=== PATIENT | female | born 1985 | race Hispanic/Latino ===

== ENCOUNTER 2019-02-18 19:11 | Emergency (ER) | payer OTHER ==
[2019-02-18 19:27] VITALS: BP 131/84
--- NOTE | 2019-02-18 19:28 | Emergency Department Report ---
Blank Doc - Documentation Documentation: 33-year-old female that presents with flank pain. This initial assessment/diagnostic orders/clinical plan/treatment(s) is/are subject to change based on patient's health status, clinical progression and re- assessment by fellow clinical providers in the ED. Further treatment and workup at subsequent clinical providers discretion. Patient/guardians urged not to elope from the ED as their condition may be serious if not clinically assessed and managed. Initial orders include: 1- Patient sent to [facility] for further evaluation and treatment 2- UA
[2019-02-18] MEDS ORDERED: SODIUM CHLORIDE 0.9% 1000 ML 1,000 ML IV ONE (19:47)
[2019-02-18] MEDS ORDERED: ONDANSETRON 4 MG/2 ML INJ IV ONE (19:47)
[2019-02-18] MEDS ORDERED: MORPHINE 4 MG/1 ML INJ IV ONE (19:47)
[2019-02-18 19:50] LABS: Bilirubin,Urine NEG (Negative); Blood,Urine NEG (Negative); Color,Urine Yellow (Yellow); HCG Qualitative,Urine Negative (Negative); Mucus,Urine FEW /HPF; Protein,Urine <15 mg/dL mg/dL (Negative); Urobilinogen,Urine < 2.0 mg/dL (<2.0)
--- NOTE | 2019-02-18 19:55 | Emergency Department Report ---
ED General Adult HPI - General Chief complaint: Abdominal Pain Stated complaint: KIDNEY STONE PAIN Time Seen by Provider: 02/18/19 19:27 Source: patient Mode of arrival: Ambulatory Limitations: No Limitations - History of Present Illness Initial comments: Patient is a 33-year-old female presents emergency room with complaints of right flank pain that began yesterday. Patient states that it wraps around to her right lower abdomen. She has associated nausea and pressure when she urinates. She denies any fever, vomiting, diarrhea, vaginal discharge. She states she has a past medical history of nephrolithiasis and the last one was 3-4 years ago. She denies ever having to have any surgical procedures for her nephrolithiasis. She has a past medical history of ADHD, PTSD, asthma, TBI. She has a past surgical history hysterectomy. She has allergy to Keppra. - Related Data Previous Rx's Medication Instructions Recorded Last Taken Type Cyclobenzaprine [Flexeril] 10 mg PO QHS PRN #12 tablet 02/18/19 Unknown Rx Naproxen [EC-Naproxen] 500 mg PO BID PRN #14 tablet. 02/18/19 Unknown Rx Allergies Allergy/AdvReac Type Severity Reaction Status Date / Time levetiracetam [From Keppra] Allergy Anaphylaxis Verified 02/18/19 19:26 ED Review of Systems ROS: Stated complaint: KIDNEY STONE PAIN Other details as noted in HPI Comment: All other systems reviewed and negative ED Past Medical Hx - Past Medical History Previous Medical History?: Yes Hx Kidney Stones: Yes Hx Psychiatric Treatment: Yes (PTSD, ADHD) Hx Asthma: Yes Additional medical history: Right hip Bursitis, TBI - Surgical History Past Surgical History?: Yes Hx Appendectomy: Yes Additional Surgical History: Hysterectomy - Social History Smoking Status: Never Smoker Substance Use Type: Alcohol - Medications Home Medications: Home Medications Medication Instructions Recorded Confirmed Last Taken Type Cyclobenzaprine [Flexeril] 10 mg PO QHS PRN #12 tablet 02/18/19 Unknown Rx Naproxen [EC-Naproxen] 500 mg PO BID PRN #14 tablet. 02/18/19 Unknown Rx ED Physical Exam - General Limitations: No Limitations General appearance: alert, in no apparent distress - Head Head exam: Present: atraumatic, normocephalic - Eye Eye exam: Present: normal appearance - ENT ENT exam: Present: mucous membranes moist - Respiratory Respiratory exam: Present: normal lung sounds bilaterally. Absent: respiratory distress, wheezes, rales, rhonchi, stridor, chest wall tenderness, accessory muscle use, decreased breath sounds, prolonged expiratory - Cardiovascular Cardiovascular Exam: Present: regular rate, normal rhythm, normal heart sounds. Absent: systolic murmur, diastolic murmur, rubs, gallop - GI/Abdominal GI/Abdominal exam: Present: soft, normal bowel sounds. Absent: distended, guarding, rebound, rigid - Back Exam Back exam: Present: CVA tenderness (R) - Neurological Exam Neurological exam: Present: alert, oriented X3 - Psychiatric Psychiatric exam: Present: normal affect, normal mood - Skin Skin exam: Present: warm, dry, intact ED Course Vital Signs 02/18/19 02/18/19 02/18/19 19:20 19:28 22:20 Temperature 97.7 F 97.7 F Pulse Rate 88 91 H Respiratory 18 18 17 Rate Blood Pressure 131/84 131/84 O2 Sat by Pulse 98 100 Oximetry 02/18/19 02/18/19 23:07 23:10 Temperature Pulse Rate 78 78 Respiratory 16 16 Rate Blood Pressure O2 Sat by Pulse 100 100 Oximetry ED Medical Decision Making - Lab Data Result diagrams: 02/18/19 19:54 02/18/19 19:54 - Radiology Data Radiology results: report reviewed CT ABDOMEN AND PELVIS WITHOUT CONTRAST HISTORY: Nausea, right flank pain COMPARISON: None TECHNIQUE: Routine abdominal and pelvic CT exam performed without contrast. Lack of intravenous contrast limits evaluation of the vascular and solid organs.. All CT scans at this location are performed using CT dose reduction for ALARA by means of automated exposure control. FINDINGS: CT ABDOMEN: Lung Bases: No significant abnormality. Liver: No significant abnormality. Biliary: No significant abnormality. Spleen: No significant abnormality. Unenlarged. Pancreas: No significant abnormality. Adrenals: No significant abnormality. Kidneys: No significant abnormality. Lymphatics: No lymphadenopathy. Vasculature: No significant abnormality. Bowel/Peritoneum: No significant abnormality. No free air. No free fluid. The appendix is surgically absent. CT PELVIC: : The uterus is surgically absent. There are no pelvic masses. Lymphatics: No lymphadenopathy. Osseous Structures: No aggressive appearing osseous lesions. Additional Findings: None IMPRESSION: 1. No significant abnormality. Signer Name: Rusty Soto MD Signed: 02/18/2019 9:43 PM Workstation Name: [id number] Transcribed By: ALEC Dictated By: Rusty Soto MD Electronically Authenticated By: Rusty Soto MD Signed Date/Time: 02/18/192142 DD/ 41 TD/TT: - Medical Decision Making Patient is a 33-year-old female presents emergency room with complaints of right flank pain that began yesterday. Patient states that it wraps around to her right lower abdomen. She has associated nausea and pressure when she urinates. She denies any fever, vomiting, diarrhea, vaginal discharge. She states she has a past medical history of nephrolithiasis and the last one was 3-4 years ago. She denies ever having to have any surgical procedures for her nephrolithiasis. She has a past medical history of ADHD, PTSD, asthma, TBI. She has a past sonia gical history hysterectomy. She has allergy to Keppra. VSS. pt is afebrile. labs are stable. UA without evidence of UTI. CT abd pelvis: 1. No significant abnormality. Patient given pain medication and nausea medication and symptoms resolved. Patient states that she felt slight itching but had no rash patient was given Benadryl and completely resolved. Patient's symptoms could be related to muscle strain as patient states that she also does heavy lifting at work. pt given prescription for naproxen and Flexeril. advised pt to please take medication as prescribed. Do not drive or operate heavy machinery while taking muscle relaxer due to potential for drowsiness. May use ice packs, heating pads, rest, epsom salt bath. Follow-up with a primary care doctor in the next 2-3 days. Return to the emergency room for any new or worsening symptoms. - Differential Diagnosis nephrolithiasis, UTI, pyelonephritis, muscle strain, disc herniation, DDD Critical care attestation.: If time is entered above; I have spent that time in minutes in the direct care of this critically ill patient, excluding procedure time. ED Disposition Clinical Impression: Right flank pain Disposition: DC-01 TO HOME OR SELFCARE Is pt being admited?: No Does the pt Need Aspirin: No Condition: Stable Instructions: Muscle Strain (ED), Flank Pain (ED) Additional Instructions: Please take medication as prescribed. Do not drive or operate heavy machinery while taking muscle relaxer due to potential for drowsiness. May use ice packs, heating pads, rest, epsom salt bath. Follow-up with a primary care doctor in the next 2-3 days. Return to the emergency room for any new or worsening symptoms. Prescriptions: Cyclobenzaprine [Flexeril] 10 mg PO QHS PRN #12 tablet PRN Reason: Muscle Spasm Naproxen [EC-Naproxen] 500 mg PO BID PRN #14 tablet. PRJavier Reason: pain Referrals: [facility] [Provider Group] - 2-3 Days Time of Disposition: 21:55 Print Language: PALAUAN
[2019-02-18 20:15] LABS: Basophils # (Auto) 0.1 K/mm3 (0.0-0.1); Basophils % (Auto) 0.7 % (0.0-1.8); Eosinophils # (Auto) 0.1 K/mm3 (0.0-0.4); Eosinophils % (Auto) 1.7 % (0.0-4.3); Hematocrit 40.7 % (30.3-42.9); Lymphocytes % (Auto) 26.2 % (13.4-35.0); Mean Corpuscular HGB Conc 35 % (30-34); Mean Corpuscular Volume 94 fl (79-97); Monocytes # (Auto) 0.7 K/mm3 (0.0-0.8); Monocytes % (Auto) 9.2 % (0.0-7.3); Platelet Count 212 K/mm3 (140-440); Red Blood Count 4.33 M/mm3 (3.65-5.03); Red Cell Distribution Width 13.7 % (13.2-15.2)
[2019-02-18 20:29] LABS: Alanine Aminotransferase 23 units/L (7-56); BUN/Creatinine Ratio 16; Blood Urea Nitrogen 13 mg/dL (7-17); Calcium 8.8 mg/dL (8.4-10.2); Hemolysis Index 27
[2019-02-18] MEDS ORDERED: ONDANSETRON 4 MG ODT TAB PO ONE (20:37)
[2019-02-18] MEDS ORDERED: MORPHINE 4 MG/1 ML INJ IM ONE (20:37)
[2019-02-18] MEDS ORDERED: diphenhydrAMINE 25 MG CAP PO ONE ×2 (20:49)
--- NOTE | 2019-02-18 21:48 | Cat Scan Report ---
CT ABDOMEN AND PELVIS WITHOUT CONTRAST HISTORY: Nausea, right flank pain COMPARISON: None TECHNIQUE: Routine abdominal and pelvic CT exam performed without contrast. Lack of intravenous cont rast limits evaluation of the vascular and solid organs.. All CT scans at this location are performed using CT dose reduction for ALARA by means of automated exposure control. FINDINGS: CT ABDOMEN: Lung Bases: No significant abnormality. Liver: No significant abnormality. Biliary: No significant abnormality. Spleen: No significant abnormality. Unenlarged. Pancreas: No significant abnormality. Adrenals: No significant abnormality. Kidneys: No significant abnormality. Lymphatics: No lymphadenopathy. Vasculature: No significant abnormality. Bowel/Peritoneum: No significant abnormality. No free air. No free fluid. The appendix is surgically absent. CT PELVIC: : The uterus is surgically absent. There are no pelvic masses. Lymphatics: No lymphadenopathy. Osseous Structures: No aggressive appearing osseous lesions. Additional Findings: None IMPRESSION: 1. No significant abnormality. Signer Name: Rusty Soto MD Signed: 02/18/2019 9:43 PM Workstation Name: [id number]
[2019-02-18] MEDS ORDERED: IBUPROFEN 600 MG TAB PO ONE (22:07)
== END 2019-02-18 22:30 | disposition home or self-care (01) ==
LOC: ED 19:11
DX: R10.9 Unspecified abdominal pain (principal); R11.0 Nausea; F43.10 Post-traumatic stress disorder, unspecified; F90.9 Attention-deficit hyperactivity disorder, unspecified type; Z87.442 Personal history of urinary calculi; Z90.49 Acquired absence of other specified parts of digestive tract; Z90.710 Acquired absence of both cervix and uterus; Z79.899 Other long term (current) drug therapy; Z88.8 Allergy status to other drugs, medicaments and biological substances
CPT/HCPCS: 36415; 74176; 80053; 81001; 81025; 83690; 85025; 96372; 99284; J2270; Q0162